=== PATIENT | female | born 1990 | race American Indian/Alaskan Native ===

== ENCOUNTER 2018-08-15 19:23 | Emergency (ER) | payer OTHER ==
[~2018-08-15] VITALS: Ht 177.8 cm; Wt 76.7 kg
--- OUTSIDE RECORDS SUMMARY | ~2018-08-15 | XMS | Clinical Summary ---
Demographics + + + | Address | [address] | | | [place] [address] | + + + | Home Phone | | + + + | Preferred Language | Unknown | + + + | Marital Status | Unknown | + + + | Sabianist Affiliation | Unknown | + + + | Race | Unknown | + + + | Ethnic Group | Unknown | + + + Author + + + | Author | [facility] | | | and Reeceana | + + + | Organization | [facility] | | | and Reeceana | + + + | Address | Unknown | + + + | Phone | Unavailable | + + + Support + + + + + | Name | Relationship | Address | Phone | + + + + + | Yosi Christianson | ECON | | | | | | [place] | | | | | [address] | | + + + + + Care Team Providers + +------+ + | Care Client Service Professional Name | Role | Phone | + +------+ + | Ayanna Motley PA-C | PP | | + +------+ + Allergies + + + + + + | Active Allergy | Reactions | Severity | Noted | Comments | | | | | Date | | + + + + + + | Cephalexin | Other (See Comments) | | 06/02/19 | Mouth sores | | | | | 11 | | + + + + + + | Codeine | Itching | | 06/03/19 | | | | | | 11 | | + + + + + + | Hydrocodone | Nausea Only | | 06/02/19 | | | | | | 11 | | + + + + + + | Levofloxacin | | | 01/10/20 | | | | | | 15 | | + + + + + + | Nitrofurantoin | | | 01/10/20 | | | | | | 15 | | + + + + + + | Oxycodone | Nausea Only | | 06/03/19 | | | | | | 11 | | + + + + + + | Pseudoephedrine | Shortness Of Breath | High | 06/02/19 | Hyperactive | | | | | 11 | | + + + + + + Medications + + + +---------+------+------+-------+ | Medication | Sig | Dispensed | Refills | Star | End | Statu | | | | | | t | Date | s | | | | | | Date | | | + + + +---------+------+------+-------+ | cyclobenzaprine | Take 5 mg by mouth 3 | | 0 | | | Activ | | (FLEXERIL) 10 mg | times daily as | | | | | e | | tablet | needed for Muscle | | | | | | | | spasms. | | | | | | + + + +---------+------+------+-------+ | cholecalciferol | Take by mouth | | 0 | | | Activ | | (VITAMIN D-3) 2000 | Daily. | | | | | e | | UNITS TABS | | | | | | | + + + +---------+------+------+-------+ | folic acid 1 mg | Take 1 mg by mouth | | 0 | | | Activ | | tablet | Daily. | | | | | e | + + + +---------+------+------+-------+ | ondansetron | Take 4 mg by mouth | | 0 | | | Activ | | (ZOFRAN ODT) 4 mg | every 8 hours as | | | | | e | | disintegrating | needed for Nausea. | | | | | | | tablet | | | | | | | + + + +---------+------+------+-------+ | | Take 1 tablet by | | 0 | | | Activ | | oxyCODONE-acetaminop | mouth every 4 hours | | | | | e | | hen (PERCOCET) 5-325 | as needed for Pain. | | | | | | | mg per tablet | | | | | | | + + + +---------+------+------+-------+ | traMADol (ULTRAM) | Take 50 mg by mouth | | 0 | | | Activ | | 50 mg tablet | every 6 hours as | | | | | e | | | needed for Pain. | | | | | | + + + +---------+------+------+-------+ | ALPRAZolam (XANAX) | Take 0.25 mg by | | 0 | | | Activ | | 0.25 mg tablet | mouth 3 times daily | | | | | e | | | as needed for | | | | | | | | Anxiety. | | | | | | + + + +---------+------+------+-------+ | | Take 1 tablet by | | 0 | | | Activ | | acetaminophen-codein | mouth every 4 hours | | | | | e | | e (TYLENOL #3) | as needed for Pain. | | | | | | | 300-30 mg per tablet | | | | | | | + + + +---------+------+------+-------+ | Magnesium 500 MG | Take by mouth. | | 0 | | | Activ | | CAPS | | | | | | e | + + + +---------+------+------+-------+ | nortriptyline | 1 capsule by mouth | 120 | 1 | 11/1 | | Activ | | (PAMELOR) 10 MG | at bedtime for 7 | capsule | | 2/20 | | e | | capsule | days; then 2 at | | | 15 | | | | | bedtime for 7 days; | | | | | | | | then 3 at bedtime | | | | | | | | for 7 days; then 4 | | | | | | | | at bedtime | | | | | | + + + +---------+------+------+-------+ Active Problems No known active problems Family History + + +------+ + | Medical History | Relation | Name | Comments | + + +------+ + | Mental illness | Father | | | + + +------+ + | Thyroid disease | Maternal | | | | | Aunt | | | + + +------+ + | Diabetes | Maternal | | | | | Grandmoth | | | | | er | | | + + +------+ + | Cancer | Mother | | | + + +------+ + | Kidney cancer | Mother | | | + + +------+ + | Thyroid disease | Mother | | | + + +------+ + | Cancer | Paternal | | | | | Grandfath | | | | | er | | | + + +------+ + | Stroke | Paternal | | | | | Grandfath | | | | | er | | | + + +------+ + | Diabetes | Paternal | | | | | Grandmoth | | | | | er | | | + + +------+ + + +------+ + + | Relation | Name | Status | Comments | + +------+ + + | Daughter | | Alive | | + +------+ + + | Father | | | | + +------+ + + | Maternal Aunt | | | | + +------+ + + | Maternal Grandmother | | | | + +------+ + + | Mother | | Alive | | + +------+ + + | Paternal Grandfather | | | | + +------+ + + | Paternal Grandmother | | | | + +------+ + + Social History + +-------+ +--------+------+ | Tobacco Use | Types | Packs/Day | Years | Date | | | | | Used | | + +-------+ +--------+------+ | Never Smoker | | | | | + +-------+ +--------+------+ + +---+---+---+ | Smokeless Tobacco: | | | | | Never Used | | | | + +---+---+---+ + + +---------+ + | Alcohol Use | Drinks/We | oz/Week | Comments | | | ek | | | + + +---------+ + | Yes | 0 | 0.0 | | | | Standard | | | | | drinks or | | | | | | | | | | equivalen | | | | | t | | | + + +---------+ + + + + | Sex Assigned at | Date Recorded | | | | + + + | Not on file | | + + + + + + + | Job Start Date | Occupation | Industry | + + + + | Not on file | Not on file | Not on file | + + + + + + + + | Travel History | Travel Start | Travel End | + + + + + + | No recent travel history available. | + + Last Filed Vital Signs + + + + | Vital Sign | Reading | Time Taken | + + + + | Blood Pressure | 123/71 | 02/05/20151450 PST | + + + + | Pulse | 76 | 02/05/20151450 PST | + + + + | Temperature | - | - | + + + + | Respiratory Rate | 14 | 02/05/20151450 PST | + + + + | Oxygen Saturation | - | - | + + + + | Inhaled Oxygen | - | - | | Concentration | | | + + + + | Weight | 75.3 kg (166 lb) | 02/05/20151450 PST | + + + + | Height | 177.8 cm (5' 10") | 02/05/20151450 PST | + + + + | Body Mass Index | 23.82 | 02/05/20151450 PST | + + + + Plan of Treatment + + + + + | Health Maintenance | Due Date | Last Done | Comments | + + + + + | Vaccine: | | | | | Dtap/Tdap/Td (1 - | 9 | | | | Tdap) | | | | + + + + + | Cervical Cancer | | | | | Screening (Pap) | 1 | | | + + + + + | Vaccine: Influenza | | | | | (Season Ended) | 9 | | | + + + + + Results Not on filefrom Last 3 Months Insurance + +--------+ +--------+ +---------+--------+ | Payer | Benefi | Subscriber | Effect | Phone | Address | Type | | | t Plan | ID | arthur | | | | | | / | | Dates | | | | | | Group | | | | | | + +--------+ +--------+ +---------+--------+ | [employer] | HEALTH | [id number] | 01/11/ | [phone] | | PPO | | | COMP | | | 2015-P | 7 | | | | | FIRST | | resent | | | | | | CHOICE | | | | | | + +--------+ +--------+ +---------+--------+ | HEALTH | IHS | [id number] | | | | Indemn | | SERVICE | YELLOW | | 015-Pr | | | ity | | | HAWK | | esent | | | | + +--------+ +--------+ +---------+--------+ + +--------+ +--------+ + + | Guarantor Name | Accoun | Relation to | Date | Phone | Billing Address | | | t Type | Patient | of | | | | | | | | | | + +--------+ +--------+ + + | Penelope Christianson | Person | Self | [birth year] | | | | al/Rich [birth year] | 1991 | [phone] | [place] [address] | | | [place] | | | 0 (Home) | | | | | | | [phone] | | | | | | | 5 (Work) | | + +--------+ +--------+ + + Advance Directives Patient has advance care planning documents on file. For more information, please contact:[facility] [place] [address]
--- OUTSIDE RECORDS SUMMARY | ~2018-08-15 | XMS | Clinical Summary ---
Demographics + + + | Address | [address] | | | [place] [address] | + + + | Home Phone | | + + + | Preferred Language | Unknown | + + + | Marital Status | Unknown | + + + | Voodoo Affiliation | Unknown | + + + | Race | Unknown | + + + | Ethnic Group | Unknown | + + + Author + + + | Author | [facility] | | | and Reeceana | + + + | Organization | [facility] | | | and Reeceana | [...] [place] | | | | | [address] | | + + + + + Care Team Providers + +------+ + | Care Spiral Tube Winder Name | Role | Phone | + [...] +--------+ +---------+--------+ | [employer] | HEALTH | [id number] | 01/11/ | [phone] | | PPO | | | COMP | | | 2015-P | 7 | | | | | FIRST | | resent | | | | | | CHOICE | | | | | | + +--------+ +--------+ +---------+--------+ | HEALTH | IHS | [id number] | | | | Indemn | | [...] | | al/Rich | | 1991 | [phone] | [place] [address] | | | [place] | | | 0 (Home) | | | | | | | [phone] | | | | | | | 5 (Work) | | + +--------+ +--------+ + + Advance Directives Patient has advance care planning documents on file. For more information, please contact:[facility] [place] [address]
[~2018-08-15 19:23] MED LIST: ACETAMINOPHEN325 M1 PO; ALPRAZOLAM0.5 MG PO; AMITRIPTYLINE H10 MG; BUTALB-ACETAMI1 EACH PO; CLONAZEPAM0.5 MG PO; CYCLOBENZAPRINE10 MG; DOXYCYCLINE HY100 MG PO; IBUPROFEN400 MG PO; IBUPROFEN600 MG PO; MICROGESTIN1 EAC1 PO; PERCOCET 5-3251 EACH PO; PRENATAL 19 TA1 EACH PO; SUMATRIPTAN SUC25 MG PO; VITAMIN B-1250 MCG PO; VITAMIN D400 UNI1 PO; ZYRTEC10 MG PO
--- OUTSIDE RECORDS SUMMARY | 2018-08-15 19:26 | XMS ---
PreManage Notification: GILDA RECIO Security Supervising Deputy Events No recent Security Events currently on file CRITERIA MET - [facility] CARE PROVIDERS Irlanda Herrera [facility] Current PHONE: [phone] Nolan Cheng [facility] Current PHONE: Unknown NOLAN CHENG [facility] Care Ferida Martinez PHONE: [phone] Nolan Cheng [facility] Current PHONE: [phone] Blas has no Care Guidelines for this patient. Santana VISIT COUNT (12 MO.) 1 [facility] 1 KIMBERLEE Castillo TOTAL 2 NOTE: Visits indicate total known visits. ED/UCC VISIT TRACKING (12 MO.) 08/15/2018 19:24 KIMBERLEE Shaikh [place] TYPE: Emergency COMPLAINT: - PNEUMONIA/CHEST PAIN 11/01/2017 16:27 [facility] [place] TYPE: Emergency DIAGNOSES: - Extremity Weakness - Left side tingling - Headache - Paresthesia of skin INPATIENT VISIT TRACKING (12 MO.) No inpatient visits to display in this time frame [id number]
--- NOTE | 2018-08-16 15:32 | EKG ---
[facility] [address] [facility] [place] [address] Signed Normal sinus rhythm Normal ECG No previous ECGs available Confirmed by LITA GREEN MD ([id number]) on 08/16/2018 3:32:28 PM Electronically Signed By: LITA GREEN MD 08/16/18 1532 PATIENT NAME: GILDA RECIO Electrocardiogram DATE OF : 88 PHYSICIAN: LITA GREEN MD REPORT #: [id number] REPORT IS CONFIDENTIAL AND NOT TO BE RELEASED WITHOUT AUTHORIZATION
== END 2018-08-15 21:51 | disposition home or self-care (01) ==
LOC: ED 19:23
DX: J20.9 Acute bronchitis, unspecified (principal); G43.909 Migraine, unspecified, not intractable, without status migrainosus; F17.200 Nicotine dependence, unspecified, uncomplicated; Z88.8 Allergy status to other drugs, medicaments and biological substances; Z88.0 Allergy status to penicillin; Z88.5 Allergy status to narcotic agent; Z79.899 Other long term (current) drug therapy
CPT/HCPCS: 71046; 93005; 93010; 99283-25

== ENCOUNTER 2020-06-26 10:59 | Emergency (ER) | payer OTHER ==
[~2020-06-26] VITALS: Ht 177.8 cm; Wt 76.7 kg
== END 2020-06-26 12:45 | disposition home or self-care (01) ==
LOC: ED 10:59
DX: R07.89 Other chest pain (principal); G43.909 Migraine, unspecified, not intractable, without status migrainosus; F17.200 Nicotine dependence, unspecified, uncomplicated; Z88.1 Allergy status to other antibiotic agents; Z88.8 Allergy status to other drugs, medicaments and biological substances; Z88.5 Allergy status to narcotic agent
CPT/HCPCS: 71046; 80048; 85025; 85379; 99285-25

== ENCOUNTER 2020-08-28 16:53 | Emergency (ER) | payer OTHER ==
[~2020-08-28] VITALS: Ht 177.8 cm; Wt 64.4 kg
[2020-08-28] MEDS ORDERED: DOXYCYCLINE HY100 MG PO (23:42)
== END 2020-08-29 | disposition home or self-care (01) ==
LOC: ED 16:53
DX: S61.311A Laceration without foreign body of left index finger with damage to nail, initial encounter (principal); W26.0XXA Contact with knife, initial encounter; G43.909 Migraine, unspecified, not intractable, without status migrainosus; F17.200 Nicotine dependence, unspecified, uncomplicated; Z88.1 Allergy status to other antibiotic agents; Z88.8 Allergy status to other drugs, medicaments and biological substances; Z88.5 Allergy status to narcotic agent; Z88.0 Allergy status to penicillin
CPT/HCPCS: 99282; A9270

== ENCOUNTER 2021-09-05 15:16 | Emergency (ER) | payer OTHER ==
[~2021-09-05] VITALS: Ht 177.8 cm; Wt 65.8 kg
[2021-09-05] MEDS ORDERED: PRENATA CHEWAB1 EACH PO (15:41)
== END 2021-09-05 17:56 | disposition home or self-care (01) ==
LOC: ED 15:16
DX: O20.0 Threatened abortion (principal); O99.351 Diseases of the nervous system complicating pregnancy, first trimester; G43.909 Migraine, unspecified, not intractable, without status migrainosus; O99.331 Smoking (tobacco) complicating pregnancy, first trimester; F17.200 Nicotine dependence, unspecified, uncomplicated; Z79.899 Other long term (current) drug therapy; Z88.0 Allergy status to penicillin; Z88.1 Allergy status to other antibiotic agents; Z88.8 Allergy status to other drugs, medicaments and biological substances; Z88.5 Allergy status to narcotic agent; Z3A.09 9 weeks gestation of pregnancy
CPT/HCPCS: 36415; 76801; 76817; 80053; 81001; 84702; 85025; 86900; 86901; 87210; 99284-25

== ENCOUNTER 2022-03-14 03:02 | Inpatient (IN) | payer BC, OTHER ==
[~2022-03-14] VITALS: Ht 177.8 cm; Wt 90.7 kg
[~2022-03-14 03:02] MED LIST changes: +PRENATA CHEWAB1 EACH PO
--- NOTE | 2022-03-14 16:36 | PR ---
[facility] [address] [facility] [place], [place] [address] Signed Progress Notes IP Datetime Report Generated by CPN: 03/14/2022 16:36 PROGRESS NOTES: [id number] Plan: Continue Present Management VITAL SIGNS: [id number] Vital Signs: Reviewed; Within Normal Limits EXAM: [id number] Dilatation: 3.0 Effacement: 75 Station: -2 Contractions: rare contractions MEMBRANES: [id number] Pooling: Positive Nitrazine: Positive Membranes Status: Ruptured Amniotic Fluid Color: Clear Comments: Pt now comfortable with epidural FETUS A: [id number] FHR Baseline: 135 Variability: Moderate 6-25bpm Accelerations: 15X15 Decelerations: None FHR Category: Category I Presentation: Vertex FETUS B: [id number] Signing Physician: Pretty Tobias DO Copies: ~ *Electronically Signed* 03/14/22 1636 PRETTY TOBIAS DO PATIENT NAME: GILDA COLEMAN PROGRESS NOTE DATE OF : 88 PHYSICIAN: PRETTY TOBIAS DO RPT #: [id number] REPORT IS CONFIDENTIAL AND NOT TO BE RELEASED WITHOUT AUTHORIZATION
--- NOTE | 2022-03-14 18:44 | PR ---
[facility] [address] [facility] [place] [facility] [place], [place] [address] Signed Progress Notes IP Datetime Report Generated by CPN: 03/14/2022 18:44 PROGRESS NOTES: [id number] Impression: Reassuring Heart Rate Procedures: Intrauterine Pressure Catheter; Scalp Electrode Plan: Continue Present Management VITAL SIGNS: [id number] Vital Signs: Reviewed; Within Normal Limits EXAM: [id number] Dilatation: 3.5 Effacement: 75 Station: -2 Contractions: rare contractions MEMBRANES: [id number] Pooling: Positive Nitrazine: Positive Membranes Status: Ruptured Amniotic Fluid Color: Clear Comments: Pt now comfortable with epidural Cervix dilated to 3cm Continue pitocin and Jenny FETUS A: [id number] FHR Baseline: 135 Variability: Moderate 6-25bpm Accelerations: 15X15 Decelerations: None FHR Category: Category I Presentation: Vertex FETUS B: [id number] Signing Physician: Beth Tobias DO Copies: ~ *Electronically Signed* 03/14/22 1844 BETH TOBIAS DO PATIENT NAME: GILDA COLEMAN PROGRESS NOTE DATE OF : 88 PHYSICIAN: BETH TOBIAS DO RPT #: [id number] REPORT IS CONFIDENTIAL AND NOT TO BE RELEASED WITHOUT AUTHORIZATION
--- NOTE | 2022-03-14 20:34 | PR ---
[facility] [address] [place], [place] [address] Signed Progress Notes IP Datetime Report Generated by CPN: 03/14/2022 20:34 PROGRESS NOTES: [id number] Impression: Non-reassuring Heart Rate Procedures: Intrauterine Pressure Catheter; Scalp Electrode Plan: Continue Present Management Other Plans: Discontinue pitocin VITAL SIGNS: [id number] Vital Signs: Reviewed; Within Normal Limits EXAM: [id number] Dilatation: 3.5 Effacement: 75 Station: -2 Contractions: rare contractions MEMBRANES: [id number] Pooling: Positive Nitrazine: Positive Membranes Status: Ruptured Amniotic Fluid Color: Clear Comments: s/p PPROM @ 0200 03/14. -pitocin discontinued for recurrent late decelerations with abrupt onset tachysystole -FHR recovering -Anticipate resuming pitocin if needed to maintain adequate contractions -Discussed with pt possible indications for : intolerance to labor, arrest of dilation. We both agree with proceeding toward vaginal delivery at this time. -Glucose 80 FETUS A: [id number] FHR Baseline: 135 Variability: Moderate 6-25bpm Accelerations: 15X15 Decelerations: None FHR Category: Category I Presentation: Vertex FETUS B: [id number] Signing Physician: Pretty Tobias DO *Electronically Signed* 03/14/222033 PRETTY TOBIAS DO PATIENT NAME: GILDA COLEMAN PROGRESS NOTE DATE OF : 88 PHYSICIAN: PRETTY TOBIAS DO RPT #: [id number] REPORT IS CONFIDENTIAL AND NOT TO BE RELEASED WITHOUT AUTHORIZATION [address], [place] [address] Signed Copies: ~ *Electronically Signed* 03/14/22 203 PRETTY TOBIAS DO PATIENT NAME: GILDA COLEMAN PROGRESS NOTE DATE OF : 88 PHYSICIAN: PRETTY TOBIAS DO RPT #: [id number] REPORT IS CONFIDENTIAL AND NOT TO BE RELEASED WITHOUT AUTHORIZATION
--- NOTE | 2022-03-14 23:06 | PR ---
[facility] [address] [facility] [place], [place] [address] Signed Progress Notes IP Datetime Report Generated by CPN: 03/14/2022 23:06 PROGRESS NOTES: [id number] Impression: Normal Progression of Labor Procedures: Intrauterine Pressure Catheter; Scalp Electrode Plan: Continue Present Management; Anticipate Vaginal Delivery Other Plans: Discontinue pitocin VITAL SIGNS: [id number] Vital Signs: Reviewed; Within Normal Limits EXAM: [id number] Dilatation: 6.0 Effacement: 80 Station: -2 Contractions: rare contractions MEMBRANES: [id number] Pooling: Positive Nitrazine: Positive Membranes Status: Ruptured Amniotic Fluid Color: Clear Comments: Progressing well, beginning to feel pressure with contractions in addition to contraction pain Declines anesthesia consult/ rebolus Anticipate FETUS A: [id number] FHR Baseline: 135 Variability: Moderate 6-25bpm Accelerations: 15X15 Decelerations: None FHR Category: Category I Presentation: Vertex FETUS B: [id number] Signing Physician: Pretty Tobias DO Copies: ~ *Electronically Signed* 03/14/22 2306 PRETTY TOBIAS DO PATIENT NAME: GILDA COLEMAN PROGRESS NOTE DATE OF : 88 PHYSICIAN: PRETTY TOBIAS DO RPT #: [id number] REPORT IS CONFIDENTIAL AND NOT TO BE RELEASED WITHOUT AUTHORIZATION
--- NOTE | 2022-03-15 17:48 | PR ---
[facility] [address] [facility] [place], [place] [address] Signed PP Progress Notes Datetime Report Generated by CPN: 03/15/2022 17:48 SUBJECTIVE: [id number] Pain: Within Normal Limits Nausea/Vomiting: Denies Flatus: Yes Bowel Movement: No Vital Signs: [id number] Vital Signs: Reviewed; Within Normal Limits Cardiovascular: Normal Respiratory: Normal Abdomen/Uterus: Normal Lochia: Normal Breasts: Normal Extremities: Normal Progress: Normal Exam Comments: NAD, sitting in chair nursing baby No dyspnea/ retractions RRR Abd SNTND Ext: 1+ edema BLLE IMPRESSION/PLAN/PROCEDURES: [id number] Impression: Normal Progression Plan: Continue Present Management Progress Notes: 31 yo PPD#1 s/p @ 36 weeks gestation -admitted for PPROM -delivery complicated by right labial laceration, easily repaired Signing Physician: Pretty Tobias DO Copies: ~ *Electronically Signed* 03/15/22 1748 PRETTY TOBIAS DO PATIENT NAME: GILDA COLEMAN PROGRESS NOTE DATE OF : 88 PHYSICIAN: PERTTY TOBIAS DO RPT #: [id number] REPORT IS CONFIDENTIAL AND NOT TO BE RELEASED WITHOUT AUTHORIZATION
--- NOTE | 2022-03-16 11:03 | PR ---
[facility] [address] [place], [place] [address] Signed PP Progress Notes Datetime Report Generated by CPN: 03/16/2022 11:03 SUBJECTIVE: [id number] Pain: Within Normal Limits Nausea/Vomiting: Denies Flatus: Yes Bowel Movement: No Vital Signs: [id number] Vital Signs: Reviewed; Within Normal Limits Cardiovascular: Normal Respiratory: Normal Abdomen/Uterus: Normal Lochia: Normal Vulva/Perineum: Normal Breasts: Normal Extremities: Normal Progress: Normal Exam Comments: Standing at bedside dressing baby RRR No dyspnea/ retractions Abd SNTND, FFBU Ext: neg Jessy's BL IMPRESSION/PLAN/PROCEDURES: [id number] Impression: Normal Progression Plan: Discharge Progress Notes: 31 yo PPD#2 s/p -Progressing well, requesting DC to home. Ambulating, voiding, tolerating regular diet. -Lochia light, pain well-controlled with orals DC to home today, routine precautions Anticipate outpatient follow-up: phone visit at 2 weeks , in-office at 6 weeks Planning Paragard IUD for contraception, to be placed 8 weeks Signing Physician: Pretty Tobias DO *Electronically Signed* 03/16/22 1103 PRETTY TOBIAS DO PATIENT NAME: GILDA COLEMAN PROGRESS NOTE DATE OF : 88 PHYSICIAN: PRETTY TOBIAS DO RPT #: [id number] REPORT IS CONFIDENTIAL AND NOT TO BE RELEASED WITHOUT AUTHORIZATION
== END 2022-03-16 11:15 | disposition home or self-care (01) | DRG 806 ==
LOC: FBCO 03:02 → FBC 04:10
PROVIDERS: ADMIT Obstetrics & Gynecology; ATTEND Obstetrics & Gynecology
PROC: 10E0XZZ Delivery of Products of Conception, External Approach (ICD-10-PCS; principal; 2022-03-14)
PROC: 0UQMXZZ Repair Vulva, External Approach (ICD-10-PCS; 2022-03-14)
PROC: 00HU33Z Insertion of Infusion Device into Spinal Canal, Percutaneous Approach (ICD-10-PCS; 2022-03-14)
PROC: 3E0R3BZ Introduction of Anesthetic Agent into Spinal Canal, Percutaneous Approach (ICD-10-PCS; 2022-03-14)
DX: O42.013 Preterm premature rupture of membranes, onset of labor within 24 hours of rupture, third trimester (principal); O98.32 Other infections with a predominantly sexual mode of transmission complicating childbirth; Z37.0 Single live birth; Z3A.36 36 weeks gestation of pregnancy; Z20.822 Contact with and (suspected) exposure to COVID-19; O24.424 Gestational diabetes mellitus in childbirth, insulin controlled; O71.82 Other specified trauma to perineum and vulva; Z67.10 Type A blood, Rh positive; O99.344 Other mental disorders complicating childbirth; A60.00 Herpesviral infection of urogenital system, unspecified; F41.8 Other specified anxiety disorders; Z87.891 Personal history of nicotine dependence; Z79.4 Long term (current) use of insulin
CPT/HCPCS: 36415; 84112; 85027; 86850; 86900; 86901; 87502; 87653; A9270; J2540; J2590; J2795; J7121; U0003